=== PATIENT | female | born 2000 | race Caucasian/White ===

== ENCOUNTER 2022-08-27 02:56 | Emergency (ER) | payer OTHER, SELFPAY ==
[2022-08-27 03:18] VITALS: BP 114/73; PULSE 98; RESP 18; TEMP 36.8; O2SAT 97; BMI 19.4
--- NOTE | 2022-08-27 03:27 | CRLHL7_ITS ---
For Patients: As a result of the Century Cures Act, medical imaging exams and procedure reports are released immediately into your electronic medical record. You may view this report before your referring provider. If you have questions, please contact your health care provider. INDICATION: Cough. TECHNIQUE: Chest 1 views. COMPARISON: None. FINDINGS: Cardiovasculature and mediastinum: Heart size and vasculature are normal in caliber and appearance. Lungs and pleural spaces: Small infiltrates suspected in the left lower lobe or lingula. Remainder of the lungs and pleural spaces are clear. No pneumothorax Bones and soft tissues: No significant findings. IMPRESSION: Suspected small pneumonia in the left lower lobe or lingula. Dictated by Julio Cesar Cruz MD @ 08/27/2022 4:35:22 AM (Electronically Signed)
--- NOTE | 2022-08-27 03:29 | ED.GENADULT ---
HPI - General Adult General Chief complaint: Cough Stated complaint: Flu like symptoms Time Seen by Provider: 08/27/22 03:00 Source: patient Mode of arrival: ambulatory Limitations: no limitations History of Present Illness HPI narrative: 21-year-old female coming in today complaining about not feeling well. States that she had cold symptoms for several days and 3 days ago developed a fever. She has been coughing this entire time but feels ladder cough is getting worse. She has a headache, and feels achy all over. She feels fatigued. Has a Decreased appetite. She denies any rashes, sick contacts, shortness of breath or diarrhea. No abdominal or chest pain. Related Data Home Medications Medication Instructions Recorded Confirmed drospirenone 3 mg-ethinyl 1 tab PO DAILY 08/27/22 08/27/22 estradiol 0.02 mg tablet Previous Rx's Medication Instructions Recorded amoxicillin 500 mg tablet 1,000 mg PO BID 5 days #20 tabs 08/27/22 azithromycin 250 mg tablet See Taper PO DIRECTED #6 tabs 08/27/22 Allergies Allergy/AdvReac Type Severity Reaction Status Date / Time No Known Drug Allergies Allergy Verified 08/27/22 03:21 Review of Systems Status of ROS: Reports: 10 or more systems reviewed and unremarkable except as noted in History and below Exam Narrative: Exam Narrative: Well-nourished well-developed patient in no acute distress. Alert and oriented. Answers questions appropriately. Mood and affect are appropriate. Thoughts are goal oriented and rational. No tangential or magical thinking noted. Patient speaks in full sentences without needing to catch their breath. HEENT: Normocephalic atraumatic. Pupils are equally round reactive to light. Extraocular muscles are intact. Conjunctivae are moist without any icterus noted. Moist mucous membranes. Posterior pharynx is normal. Neck is soft without any lymphadenopathy or thyromegaly. No masses are appreciated. Cardiovascular: Heart is regular rate and rhythm S1 and S2 are present without any murmurs. Lungs: Clear to auscultation on the right, she does have some crackles on the left. Abdomen: Soft and nontender nondistended with normal bowel sounds. Skin: Well perfused without any obvious rashes. Const: Vital Signs, click to edit/add: Vital Signs - 24 hr 08/27/22 03:18 Temperature 98.2 F Pulse Rate [Right Pulse Oximeter] 98 Respiratory Rate 18 Blood Pressure [Ri ght Upper Arm] 114/73 Pulse Oximetry 97 Oxygen Delivery Me thod Room Air Course Course Hospital Course: Triple swab was negative. Chest x-ray, read by me, does show a left-sided infiltrate. Vital Signs Vital signs: Initial Vital Signs Temperature 98.2 F 08/27/22 03:18 Temperature Source Temporal Artery Scan 08/27/22 03:18 Pulse Rate 98 08/27/22 03:18 Respiratory Rate 18 08/27/22 03:18 Blood Pressure 114/73 08/27/22 03:18 Blood Pressure Mean 86 08/27/22 03:18 Blood Pressure Position Sitting 08/27/22 03:18 Pulse Oximetry 97 08/27/22 03:18 Oxygen Delivery Method 08/27/22 03:18 Vital Signs Temperature 98.2 F 08/27/22 03:18 Pulse Rate 98 08/27/22 03:18 Respiratory Rate 18 08/27/22 03:18 Blood Pressure 114/73 08/27/22 03:18 Pulse Oximetry 97 08/27/22 03:18 Oxygen Delivery Method 08/27/22 03:18 Temperature 98.2 F 08/27/22 03:18 Pulse Rate 98 08/27/22 03:18 Respiratory Rate 18 08/27/22 03:18 Blood Pressure 114/73 08/27/22 03:18 Pulse Oximetry 97 08/27/22 03:18 Oxygen Delivery Method 08/27/22 03:18 Medical Decision Making MDM Narrative Medical decision making narrative: 21-year-old female with pneumonia. Will treat with azithromycin and amoxicillin. We discussed follow-up with her primary care provider in 7-10 days return to the ER if things are getting worse. Patient and Mom were agreeable with everything we discussed had no other questions. Lab Data Lab results reviewed: Yes I reviewed the patient's lab results Labs: Lab Results 08/27/22 Range/Units 03:17 SARS-CoV-2 (PCR) Negative SARS-CoV-2 (Negative) Influenza Type A (PCR) Negative PCR FLU A (Negative) Influenza Type B (PCR) Negative PCR FLU B (Negative) RSV (PCR) Negative PCR RSV (Negative) Imaging Data Chest x-ray: Attestation: I have reviewed the pertinent imaging results. Radiologist's impression: Chest 1 views. COMPARISON: None. FINDINGS: Cardiovasculature and mediastinum: Heart size and vasculature are normal in caliber and appearance. Lungs and pleural spaces: Small infiltrates suspected in the left lower lobe or lingula. Remainder of the lungs and pleural spaces are clear. No pneumothorax Bones and soft tissues: No significant findings. IMPRESSION: Suspected small pneumonia in the left lower lobe or lingula. Discharge Plan Discharge Clinical Impression: Pneumonia Patient Disposition: Home w/ Parent or Adult Condition: Stable Additional Instructions: Take all antibiotics as prescribed. Okay to use ibuprofen or Tylenol as needed for achiness or fever. Follow-up with your primary care provider in 7-10 days. Return to the ER if your symptoms are getting worse. Prescriptions: New azithromycin 250 mg tablet See Taper PO DIRECTED Qty: 6 0RF Taper: Z-MODE 500 mg Q24H for 1 Day and 0 Hour 250 mg Q24H for 4 Days and 0 Hour Rx Instructions: For 250 mg dose pack: take 500 mg today (day 1), then 250 mg for 4 days (days 2-5) amoxicillin 500 mg tablet 1,000 mg PO BID 5 Days Qty: 20 0RF No Action drospirenone-ethinyl estradiol 3-0.02 mg tablet 1 tab PO DAILY Label Comments: TAKE 1 TABLET BY MOUTH EVERY DAY Follow Up/Referrals: Polina Baxter MD [Primary Care Provider] - Stand Alone Forms: [employer] Info Instructions
[2022-08-27 04:05] LABS: PCR FLU A Negative PCR FLU A (Negative); PCR FLU B Negative PCR FLU B (Negative); PCR RSV Negative PCR RSV (Negative)
[2022-08-27 04:18] LABS: SARS PCR* Negative SARS-CoV-2 (Negative)
[2022-08-27 04:36] VITALS: BP 122/74; PULSE 87; RESP 18; TEMP 37; O2SAT 97
[2022-08-27 04:53] VITALS: BP 122/74; PULSE 87; RESP 18; TEMP 37
== END 2022-08-27 04:54 | disposition home or self-care (01) ==
PROVIDERS: Emergency Provider Family Medicine; PCP Family Medicine
DX: J18.9 Pneumonia, unspecified organism (principal)
CPT/HCPCS: 71045; 87502; 87634; 87635; 99284